=== PATIENT | female | born 1950 | race Caucasian/White ===

== ENCOUNTER → 2017-06-04 | Outpatient (CLI) | payer OTHER | LOC: NUC 06:12 | DX: M85.80 Other specified disorders of bone density and structure, unspecified site (principal); Z78.0 Asymptomatic menopausal state ==

== ENCOUNTER → 2018-07-24 | Outpatient (CLI) | payer OTHER | LOC: MRI 11:27 | DX: R51 Headache (principal) ==

== ENCOUNTER → 2018-08-14 | Outpatient (CLI) | payer OTHER | LOC: NUC 13:37 | DX: M85.88 Other specified disorders of bone density and structure, other site (principal); M81.0 Age-related osteoporosis without current pathological fracture ==

== ENCOUNTER → 2018-09-08 | Outpatient (CLI) | payer OTHER | LOC: CAT 10:05 | DX: Z13.6 Encounter for screening for cardiovascular disorders (principal); I25.10 Atherosclerotic heart disease of native coronary artery without angina pectoris; E78.00 Pure hypercholesterolemia, unspecified ==

== ENCOUNTER → 2018-12-21 | Outpatient (CLI) | payer OTHER ==
[~2018-12-21] VITALS: Ht 162.6 cm; Wt 56.7 kg
[~2018-12-21] MED LIST: CALCIUM + VITA1 EACH PO; FOSAMAX 70 MG T70 MG PO; HAIR, SKIN & N1 EAC2 PO; LEVO-T50 MCG PO; MULTIVITAMINS1 EAC7 PO; SPIRONOLACTONE50 MG PO; TUMS PO; TURMERIC500 M2 PO; VITAMIN D-32000 UNIT PO
--- NOTE | 2018-12-23 17:06 | PATH ---
[facility] [address] [place] [address] PATHOLOGY RPT PROCEDURE Name: LILLIAN LUTZ Room #: [facility] M.R.#: [id number] Admission: 12/21/18 Date of : 46 Discharge: Report #: [id number] Path Case #: [id number] [facility] Accession Number: [id number] . 01 Material submitted: . colon - POLYP AT TRANSVERSE COLON. Modifiers: transverse . 01 Clinical history: . Pre-op diagnosis: Family history of colon cancer, screening colonoscopy Post-op diagnosis: Colon polyp . 02 Diagnosis: Polyp, at transverse colon, endoscopic biopsy: - Minute tubular adenoma with adjacent hyperplastic polyp. - Negative for high grade dysplasia. (IUV/db; 12/23/2018) LBQ 12/23/2018 1322 Local . 02 Electronically signed: . Rosa Gomez MD, Pathologist NPI- [id number] . 01 Gross description: . The specimen is received in formalin, labeled "Lillian Lutz, polyp at transverse colon". Received is a segment of pale meeks soft tissue measuring 1.1 cm in maximum dimensions. The specimen is submitted entirely in cassette A1. (CAA; 12/22/2018) QAC/QAC 12/22/2018 1130 Local . 02 Pathologist provided ICD-10: D12.3, K63.5 . 02 CPT . 888697 Specimen Comment: A courtesy copy of this report has been sent to [phone], [phone] Specimen Comment: [phone] Specimen Comment: Report sent to / DR SINGH Performed at: [address], [place] [id number] MD Tay Peralta MD Phone: [phone] Performed at: [address], [place] [id number] MD Roas Gomez MD Phone: [phone]
== END | disposition home or self-care (01) ==
LOC: GI 07:08
DX: Z12.11 Encounter for screening for malignant neoplasm of colon (principal); Z80.0 Family history of malignant neoplasm of digestive organs; D12.3 Benign neoplasm of transverse colon; K64.8 Other hemorrhoids; K21.9 Gastro-esophageal reflux disease without esophagitis; E03.9 Hypothyroidism, unspecified; Z98.890 Other specified postprocedural states; Z88.2 Allergy status to sulfonamides; Z79.899 Other long term (current) drug therapy
CPT/HCPCS: 62110; 62900